=== PATIENT | male | born 1935 | race Caucasian/White ===

== ENCOUNTER 2019-07-27 09:45 | Emergency (ER) | payer OTHER, BC, MEDICARE ==
--- NOTE | 2019-07-27 10:26 | EDM.PDOC ---
ED HPI GENERAL MEDICAL PROBLEM - General Chief Complaint: Cardiovascular Problem Stated Complaint: LOW BP,FALL LAST NIGHT Time Seen by Provider: 07/27/19 10:16 - History of Present Illness INITIAL COMMENTS - FREE TEXT/NARRATIVE: 84-year-old male sent in by his primary care provider because he is having increasing dizziness and falls. Patient had his losartan held yesterday after he fell. It is uncertain to me whether or not he took his dose yesterday because the phone order to hold the losartan came in midday. The patient fell again on the he does say that he has been having increased dizziness the assisted living center where he stays did note that he has been mildly bradycardic with pulse rate in the 50s which she is done here and his blood pressure systolic is was 92. At this time his blood pressure is 120s here and he thinks the dizziness is getting a little bit better. Patient states he drinks 1 or 2 cups of coffee a day and probably not enough water. His appetite is otherwise normal. With the falls the patient denies hitting his head. With his falls he was walking with both of them. However at this time he denies being a little lightheaded just sitting there. He denies any abnormal pain at this point he does state at his age he always has a little bit of pain somewhere but nothing out of the ordinary. No headaches. The patient does not have a cough and no breathing difficulties and no chest pain. He states that for the most part he is in really good health. He has been having frequent loose stools 3-5 may be as high as 8 times a day. This is been an ongoing problem for him they have tried to do a colonoscopy but significant pain and spasm prevented exam. This was sometime back but he still has some discomfort in the area. - Related Data Allergies Allergy/AdvReac Type Severity Reaction Status Date / Time No Known Allergies Allergy Verified 07/27/19 09:53 Home Meds: Home Meds Acetaminophen 325 mg PO Q6H PRN 07/27/19 [History] Calazinc Body Shield 1 applic TOP ASDIRECTED PRN 07/27/19 [History] Carbamide Peroxide [Debrox 6.5% Otic Soln] 5 - 10 drop EARBOTH BID PRN 07/27/19 [History] Carboxymethylcell/Glycerin/Pf [Refresh Relieva Pf 0.5-0.9%] 1 drop EYEBOTH Q2H 07/27/19 [History] Carboxymethylcellulose Sodium [Refresh Tears 0.5%] 1 drop EYEBOTH ASDIRECTED PRN 07/27/19 [History] Cyanocobalamin (Vitamin B-12) [B-12] 1,000 mcg PO DAILY 07/27/19 [History] Donepezil HCl 10 mg PO BEDTIME 07/27/19 [History] Ibuprofen 200 mg PO Q4H PRN 07/27/19 [History] Inulin/Chromium Picolinate [Fiber Gummies] 2 piece gum PO DAILY 07/27/19 [ History] Levothyroxine [Synthroid] 50 mcg PO DAILY 07/27/19 [History] Loperamide [Imodium AD] 2 mg PO ASDIRECTED PRN 07/27/19 [History] Losartan [Cozaar] 25 mg PO DAILY 07/27/19 [History] Naproxen [Naprosyn] 500 mg PO BID PRN 07/27/19 [History] Sertraline [Zoloft] 50 mg PO DAILY 07/27/19 [History] Triamcinolone Acetonide 1 applic TOP BID PRN 07/27/19 [History] atorvaSTATin Calcium [Atorvastatin Calcium] 40 mg PO BEDTIME 07/27/19 [History] busPIRone [Buspar] 5 mg PO TID PRN 07/27/19 [History] prednisoLONE Acetate [Prednisolone Acetate] 1 drop EYEBOTH QID 07/27/19 [History ] Past Medical History HEENT History: Reports: Cataract, Impaired Vision Other HEENT History: wears reading eyeglasses. Cardiovascular History: Reports: CAD, High Cholesterol Other Cardiovascular History: atherosclerotic heart disease. Genitourinary History: Reports: Prostate Disorder Other Genitourinary History: Hx--prostate seed implantation. Musculoskeletal History: Reports: Osteoarthritis Neurological History: Reports: Other (See Below) Other Neuro History: dementia Psychiatric History: Reports: Dementia, PTSD Other Psychiatric History: major depressive disorder, single episode. Endocrine/Metabolic History: Reports: Hypothyroidism Immunologic History: Reports: Other (See Below) Other Immunologic History: prostate CA Oncologic (Cancer) History: Reports: Prostate - Past Surgical History HEENT Surgical History: Reports: Cataract Surgery Social & Family History - Tobacco Use Smoking Status *Q: Never Smoker Second Hand Smoke Exposure: No - Caffeine Use Caffeine Use: Reports: Coffee - Recreational Drug Use Recreational Drug Use: No ED ROS GENERAL - Review of Systems Review Of Systems: See Below Constitutional: Denies: Malaise, Weakness, Fatigue, Night Sweats HEENT: Reports: No Symptoms Respiratory: Reports: No Symptoms Cardiovascular: Reports: No Symptoms GI/Abdominal: Reports: No Symptoms Musculoskeletal: Reports: No Symptoms Skin: Reports: No Symptoms Neurological: Reports: Dizziness. Denies: No Symptoms Psychiatric: Reports: No Symptoms Hematologic/Lymphatic: Reports: No Symptoms ED EXAM, GENERAL - Physical Exam Exam: See Below Exam Limited By: No Limitations General Appearance: Alert, No Apparent Distress Eye Exam: Bilateral Eye: Normal Inspection Ears: Normal External Exam, Normal Canal, Hearing Grossly Normal, Normal TMs Nose: Normal Inspection, Normal Mucosa, No Blood Throat/Mouth: Normal Inspection, Normal Lips, Normal Gums, Normal Oropharynx, Normal Voice, No Airway Compromise. No: Normal Teeth (Has his own teeth on the bottom and they look well dentures on the uppers) Head: Atraumatic, Normocephalic Neck: Normal Inspection, Supple, Non-Tender, Full Range of Motion. No: Lymphadenopathy (L), Lymphadenopathy (R) Respiratory/Chest: No Respiratory Distress, Lungs Clear, Normal Breath Sounds Cardiovascular: Regular Rate, Rhythm, No Edema, No Murmur GI/Abdominal: Normal Bowel Sounds, Soft, Non-Tender Back Exam: Normal Inspection. No: CVA Tenderness (L), CVA Tenderness (R) Extremities: Normal Inspection, No Pedal Edema Neurological: Alert, Oriented, Normal Cognition Psychiatric: Normal Affect, Normal Mood Skin Exam: Warm, Dry, Intact Lymphatic: No Adenopathy Course - Vital Signs Last Recorded V/S: Last Vital Signs Temp 36.5 C 07/27/19 09:45 Pulse 56 L 07/27/19 09:45 Resp 20 07/27/19 09:45 BP 127/72 07/27/19 09:45 Pulse Ox 98 07/27/19 09:45 - Orders/Labs/Meds Orders: Active Orders 24 hr Category Date Time Status EKG 12 Lead [EKG Documentation Completion] [RC] STAT Care 07/27/19 13:13 Active STOOL CULTURE/SHIGA TOXIN [MREF] Stat Lab 07/27/19 13:03 Ordered Lactated Ringers [Ringers, Lactated] 1,000 ml Med 07/27/19 10:45 Active IV ASDIRECTED Medication Orders Lactated Ringer's (Ringers, Lactated) 1,000 mls @ 100 mls/hr IV ASDIRECTED DOROTHY Labs: Laboratory Tests 07/27/19 07/27/19 07/27/19 Range/Units 10:45 10:45 13:00 WBC 5.54 (4.23-9.07) K/mm3 RBC 4.26 L (4.63-6.08) M/mm3 Hgb 13.1 L (13.7-17.5) gm/dl Hct 38.4 L (40.1-51.0) % MCV 90.1 (79.0-92.2) fl MCH 30.8 (25.7-32.2) pg MCHC 34.1 (32.2-35.5) g/dl RDW Std Deviation 41.0 (35.1-43.9) fL Plt Count 184 (163-337) K/mm3 MPV 11.5 (9.4-12.3) fl Neut % (Auto) 59.3 (34.0-67.9) % Lymph % (Auto) 26.5 (21.8-53.1) % [place] % (Auto) 10.3 (5.3-12.2) % Eos % (Auto) 3.2 (0.8-7.0) Baso % (Auto) 0.5 (0.1-1.2) % Neut # (Auto) 3.28 (1.78-5.38) K/mm3 Lymph # (Auto) 1.47 (1.32-3.57) K/mm3 [place] # (Auto) 0.57 (0.30-0.82) K/mm3 Eos # (Auto) 0.18 (0.04-0.54) K/mm3 Baso # (Auto) 0.03 (0.01-0.08) K/mm3 Sodium 143 (136-145) mEq/L Potassium 3.5 (3.5-5.1) mEq/L Chloride 107 (98-107) mEq/L Carbon Dioxide 29 (21-32) mEq/L Anion Gap 10.5 (5-15) BUN 11 (7-18) mg/dL Creatinine 0.9 (0.7-1.3) mg/dL Est Cr Clr Drug Dosing 50.75 mL/min Estimated GFR (MDRD) > 60 (>60) mL/min BUN/Creatinine Ratio 12.2 L (14-18) Glucose 88 (83-115) mg/dL Calcium 8.4 L (8.5-10.1) mg/dL Magnesium 1.9 (1.8-2.4) mg/dl Total Bilirubin 0.6 (0.2-1.0) mg/dL AST 28 (15-37) U/L ALT 41 (16-63) U/L Alkaline Phosphatase 87 (46-116) U/L Total Protein 6.6 (6.4-8.2) g/dl Albumin 3.3 L (3.4-5.0) g/dl Globulin 3.3 gm/dL Albumin/Globulin Ratio 1.0 (1-2) Urine Color Yellow (Yellow) Urine Appearance Clear (Clear) Urine pH 7.0 (5.0-8.0) Ur Specific [place] 1.020 (1.005-1.030) Urine Protein Negative (Negative) Urine Glucose (UA) Negative (Negative) Urine Ketones Negative (Negative) Urine Occult Blood Negative (Negative) Urine Nitrite Negative (Negative) Urine Bilirubin Negative (Negative) Urine Urobilinogen 0.2 (0.2-1.0) Ur Leukocyte Esterase Negative (Negative) Meds: Medications Generic Name Dose Route Start Last Admin Trade Name Freq PRN Reason Stop Dose Admin Lactated Ringer's 1,000 mls @ 100 mls/hr 07/27/19 10:45 Ringers, Lactated IV ASDIRECTED DOROTHY Discontinued Medications Generic Name Dose Route Start Last Admin Trade Name Freq PRN Reason Stop Dose Admin Lactated Ringer's 500 mls @ 999 mls/hr 07/27/19 10:33 07/27/19 10:50 Ringers, Lactated IV 07/27/19 11:03 999 mls/hr .BOLUS ONE Administration - Re-Assessments/Exams Free Text/Narrative Re-Assessment/Exam: 07/27/19 11:26 Overall I am worried about this gentleman's condition we will check for protective chill causes including a head CT of discussed the situation with his primary provider anticipating stopping the Aricept as this can be contributing to his low blood pressure and his mild bradycardia it sounds like he is having some significant depression issues but we will not address that today. I did discuss the situation with the patient's son and he is awfully worried about him. The son has very realistic expectations about an 84-year-old developing these problems in the dementia but he is quite okay with a stop of the Aricept especially with the side effect profile and the limited benefits. I discussed situation with Clarisa Frazier, his primary provider, at the [facility], who would be willing to see the patient later this week or early next week for follow-up. 07/27/19 12:48 Still waiting on a urine he does not look dehydrated on his labs. 07/27/19 14:15 Have to do an outpatient order for C. difficile cultures for stool have been submitted. Patient is doing well at this time we will discharge have him hold his Aricept and stay off his losartan until followed up in the clinic in 1 week. Departure - Departure Time of Disposition: 14:17 Disposition: Home, Self-Care 01 Clinical Impression: Dizziness, Diarrhea Referrals: Clarisa Frazier, [employer] [Primary Care Provider] - Forms: ED Department Discharge Additional Instructions: Return to the emergency room with any questions or problems. Stop the Aricept. Continue holding the losartan until he follows up in the clinic. Follow-up with Clarisa Frazier at the [facility] on Thursday or Thursday of next week. Return a stool specimen for Clostridium difficile. I think this is unlikely but with his chronicity of the diarrhea it needs to be excluded Sepsis Event Note - Evaluation Sepsis Screening Result: No Definite Risk - Focused Exam Vital Signs: Vital Signs Temp Pulse Resp BP Pulse Ox 07/27/19 09:45 36.5 C 56 L 20 127/72 98 Date Exam was Performed: 07/27/19 Time Exam was Performed: 14:01 - My Orders Last 24 Hours: My Active Orders 07/27/19 10:45 Lactated Ringers [Ringers, Lactated] 1,000 ml IV ASDIRECTED 07/27/19 13:03 STOOL CULTURE/SHIGA TOXIN [MREF] Stat 07/27/19 13:13 EKG 12 Lead [EKG Documentation Completion] [RC] STAT - Assessment/Plan Last 24 Hours: My Active Orders 07/27/19 10:45 Lactated Ringers [Ringers, Lactated] 1,000 ml IV ASDIRECTED 07/27/19 13:03 STOOL CULTURE/SHIGA TOXIN [MREF] Stat 07/27/19 13:13 EKG 12 Lead [EKG Documentation Completion] [RC] STAT
[2019-07-27] MEDS ORDERED: Lactated Ringers 500 ML IV ONE (10:33)
[2019-07-27] MEDS ORDERED: Lactated Ringers 1,000 ML IV SCH (10:45)
--- NOTE | 2019-07-27 11:55 | CT ---
Head CT Technique: Multiple axial sections through the brain were obtained. Intravenous contrast was not utilized. [place]: Prior head CT study of 12/20/18. Findings: Ventricles along with basal cisterns and sulci over the convexities are moderately prominent. Mild diminished density is noted within portions of the periventricular and subcortical white matter which is compatible with small vessel ischemic demyelination change. No other abnormal parenchymal densities are seen. No evidence of intracranial hemorrhage. No midline shift or mass-effect is seen. Bone window settings were reviewed. No acute calvarial finding is seen. Visualized mastoid sinuses and visualized paranasal sinuses show nothing acute. Mild atherosclerotic calcification is seen within the carotid siphon. Impression: 1. Generalized atrophy and other senescent change. 2. No acute intracranial abnormality is appreciated. Diagnostic code #2 This report was dictated in MDT
== END 2019-07-27 14:45 | disposition home or self-care (01) ==
LOC: JD.ED 09:45
DX: R42 Dizziness and giddiness (principal); R19.7 Diarrhea, unspecified; I25.10 Atherosclerotic heart disease of native coronary artery without angina pectoris; E78.00 Pure hypercholesterolemia, unspecified; F03.90 Unspecified dementia, unspecified severity, without behavioral disturbance, psychotic disturbance, mood disturbance, and anxiety; F32.9 Major depressive disorder, single episode, unspecified; E03.9 Hypothyroidism, unspecified; Z79.899 Other long term (current) drug therapy
CPT/HCPCS: 36415; 70450; 80053; 81003; 83735; 85025; 87045; 87046; 87899; 93005; 96360; 96361; 99284; J7120; 99283

== ENCOUNTER 2020-04-11 11:32 | Emergency (ER) | payer BC, OTHER ==
--- NOTE | 2020-04-11 12:09 | EDM.PDOC ---
ED HPI GENERAL MEDICAL PROBLEM - General Chief Complaint: Cardiovascular Problem Stated Complaint: [facility] Time Seen by Provider: 04/11/20 11:40 Source of Information: Reports: Patient History Limitations: Reports: No Limitations - History of Present Illness INITIAL COMMENTS - FREE TEXT/NARRATIVE: 84-year-old male presents to the emergency department from [facility] with reports of having a syncopal episode. Staff reports that patient is normally up and ambulating independently however he came out of the bathroom this morning and had a witnessed syncopal episode. Patient's blood pressure initially after this episode was in the 70s systolic. Patient was then transported to the emergency department by EMS. Onset: Today, Sudden - Related Data Allergies Allergy/AdvReac Type Severity Reaction Status Date / Time No Known Allergies Allergy Verified 07/27/19 09:53 Home Meds: Home Meds Acetaminophen 325 mg PO Q6H PRN 07/27/19 [History] Calazinc Body Shield 1 applic TOP ASDIRECTED PRN 07/27/19 [History] Carbamide Peroxide [Debrox 6.5% Otic Soln] 5 - 10 drop EARBOTH BID PRN 07/27/19 [History] Carboxymethylcell/Glycerin/Pf [Refresh Relieva Pf 0.5-0.9%] 1 drop EYEBOTH ASDIRECTED PRN 07/27/19 [History] Carboxymethylcellulose Sodium [Refresh Tears 0.5%] 1 drop EYEBOTH ASDIRECTED PRN 07/27/19 [History] Cyanocobalamin (Vitamin B-12) [B-12] 1,000 mcg PO DAILY 07/27/19 [History] Donepezil HCl 5 mg PO BEDTIME 07/27/19 [History] Ibuprofen 200 mg PO Q4H PRN 07/27/19 [History] Levothyroxine [Synthroid] 75 mcg PO DAILY 07/27/19 [History] Loperamide [Imodium AD] 2 mg PO ASDIRECTED PRN 07/27/19 [History] Naproxen [Naprosyn] 500 mg PO BID PRN 07/27/19 [History] Sertraline [Zoloft] 100 mg PO DAILY 07/27/19 [History] Triamcinolone Acetonide 1 applic TOP BID PRN 07/27/19 [History] atorvaSTATin Calcium [Atorvastatin Calcium] 40 mg PO BEDTIME 07/27/19 [History] busPIRone [Buspar] 15 mg PO BID PRN 07/27/19 [History] Divalproex Sodium [Depakote] 125 mg PO DAILY 04/11/20 [History] Psyllium Husk [Fiber] 1 dose PO DAILY 04/11/20 [History] Past Medical History HEENT History: Reports: Cataract, Impaired Vision Other HEENT History: wears reading eyeglasses. Cardiovascular History: Reports: CAD, High Cholesterol Other Cardiovascular History: atherosclerotic heart disease. Genitourinary History: Reports: Prostate Disorder Other Genitourinary History: Hx--prostate seed implantation. Musculoskeletal History: Reports: Osteoarthritis Neurological History: Reports: Other (See Below) Other Neuro History: dementia Psychiatric History: Reports: Anxiety, Dementia, PTSD Other Psychiatric History: major depressive disorder, single episode. Endocrine/Metabolic History: Reports: Hypothyroidism Immunologic History: Reports: Other (See Below) Other Immunologic History: prostate CA Oncologic (Cancer) History: Reports: Prostate - Past Surgical History HEENT Surgical History: Reports: Cataract Surgery Social & Family History - Tobacco Use Tobacco Use Status *Q: Unknown Ever Used Tobacco - Caffeine Use Caffeine Use: Reports: None - Recreational Drug Use Recreational Drug Use: No ED ROS GENERAL - Review of Systems Review Of Systems: See Below Constitutional: Reports: No Symptoms, Other (Your vital signs reveal a temp of 98.4, pulse of 60, respiratory rate of 12, blood pressure 89/55, pulse ox 100% on room air) HEENT: Reports: Hearing Loss (hearing aid in right ear) Respiratory: Reports: No Symptoms Cardiovascular: Reports: Blood Pressure Problem, Syncope Endocrine: Reports: No Symptoms GI/Abdominal: Reports: No Symptoms : Reports: No Symptoms Musculoskeletal: Reports: No Symptoms Skin: Reports: No Symptoms Neurological: Reports: No Symptoms Psychiatric: Reports: Confusion (Patient is a resident of [facility] and has significant dementia) Hematologic/Lymphatic: Reports: No Symptoms Immunologic: Reports: No Symptoms ED EXAM, GENERAL - Physical Exam Exam: See Below Exam Limited By: No Limitations General Appearance: Alert, WD/WN, No Apparent Distress Eye Exam: Bilateral Eye: PERRL Ears: Hearing Loss (very hard of hearing, hearing aid in right ear) Nose: Normal Inspection Throat/Mouth: Normal Voice, No Airway Compromise Head: Atraumatic, Normocephalic Neck: Normal Inspection, Supple, Non-Tender, Full Range of Motion Respiratory/Chest: No Respiratory Distress, Lungs Clear, Normal Breath Sounds, No Accessory Muscle Use, Chest Non-Tender Cardiovascular: Normal Peripheral Pulses, Regular Rate, Rhythm, No Edema, No Murmur, Bradycardia Peripheral Pulses: 2+: Radial (L), Radial (R) GI/Abdominal: Normal Bowel Sounds, Soft, Non-Tender, No Distention (Male) Exam: Deferred Rectal (Males) Exam: Deferred Back Exam: Normal Inspection, Full Range of Motion Extremities: Normal Inspection, Normal Range of Motion, Non-Tender, No Pedal Edema, Normal Capillary Refill Neurological: Alert, Normal Cognition. No: Oriented (history of dementia) Psychiatric: Normal Affect, Normal Mood Skin Exam: Warm, Dry, Intact, No Rash, Pallor Lymphatic: No Adenopathy #1 Interpretation EKG Date: 04/11/20 Time: 11:40 Rhythm: NSR Rate (Beats/Min): 58 [place]: Normal P-Wave: Present QRS: Normal ST-T: Normal QT: Normal Comparison: NA - No Prior EKG EKG Interpretation Comments: EKG interpretation per Dr. Diaz: Sinus rhythm at 58 bpm, early R wave transition/consider right ventricular hypertrophy/septal hypertrophy, diffuse early R wave transition, Q waves in II,III, AVF-consider old inferior wall TX. Course - Vital Signs Text/Narrative:: 84-year-old male brought in by EMS to the emergency department from [facility] assisted [facility]. Patient had a witnessed syncopal episode after walking out of the bathroom this morning. Patient is normally up independently and has had no issues with nausea, vomiting, dehydration recently. Has not had any fever or chills. Patient does have significant dementia so it is difficult to get a thorough history on himself. Not able to elicit any painful response on palpation of the abdomen. In assessment is otherwise essentially unremarkable. I have ordered a CBC, CMP, magnesium, C-reactive protein, troponin, EKG and a chest x-ray. I have also ordered for nursing staff to perform orthostatic vital signs on the patient. Last Recorded V/S: Last Vital Signs Temp 98.4 F 04/11/20 11:36 Pulse 60 04/11/20 11:36 Resp 12 04/11/20 11:36 BP 89/55 L 04/11/20 11:36 Pulse Ox 100 04/11/20 11:36 Orthostatic Blood Pressure [ 104/58 Standing] Orthostatic Blood Pressure [ 109/58 Sitting] Orthostatic Blood Pressure [ 103/52 Supine] - Orders/Labs/Meds Orders: Active Orders 24 hr Category Date Time Status Orthostatic Vital Signs [RC] ASDIRECTED Care 04/11/20 11:43 Active Labs: Laboratory Tests 04/11/20 04/11/20 Range/Units 11:56 11:56 WBC 4.70 (4.23-9.07) K/mm3 RBC 3.96 L (4.63-6.08) M/mm3 Hgb 12.1 L (13.7-17.5) gm/dl Hct 36.3 L (40.1-51.0) % MCV 91.7 (79.0-92.2) fl MCH 30.6 (25.7-32.2) pg MCHC 33.3 (32.2-35.5) g/dl RDW Std Deviation 41.5 (35.1-43.9) fL Plt Count 146 L (163-337) K/mm3 MPV 11.8 (9.4-12.3) fl Neut % (Auto) 61.4 (34.0-67.9) % Lymph % (Auto) 20.0 L (21.8-53.1) % [place] % (Auto) 15.5 H (5.3-12.2) % Eos % (Auto) 2.1 (0.8-7.0) Baso % (Auto) 0.6 (0.1-1.2) % Neut # (Auto) 2.88 (1.78-5.38) K/mm3 Lymph # (Auto) 0.94 L (1.32-3.57) K/mm3 [place] # (Auto) 0.73 (0.30-0.82) K/mm3 Eos # (Auto) 0.10 (0.04-0.54) K/mm3 Baso # (Auto) 0.03 (0.01-0.08) K/mm3 Manual Slide Review Normal smear Sodium 141 (136-145) mEq/L Potassium 4.4 (3.5-5.1) mEq/L Chloride 107 (98-107) mEq/L Carbon Dioxide 28 (21-32) mEq/L Anion Gap 10.4 (5-15) BUN 11 (7-18) mg/dL Creatinine 1.2 (0.7-1.3) mg/dL Est Cr Clr Drug Dosing 40.50 mL/min Estimated GFR (MDRD) 58 (>60) mL/min BUN/Creatinine Ratio 9.2 L (14-18) Glucose 169 H (83-115) mg/dL Calcium 8.7 (8.5-10.1) mg/dL Magnesium 1.9 (1.8-2.4) mg/dl Total Bilirubin 0.5 (0.2-1.0) mg/dL AST 20 (15-37) U/L ALT 24 (16-63) U/L Alkaline Phosphatase 72 (46-116) U/L Troponin I < 0.017 (0.00-0.056) ng/mL C-Reactive Protein 2.1 H* (<1.0) mg/dL Total Protein 6.5 (6.4-8.2) g/dl Albumin 3.0 L (3.4-5.0) g/dl Globulin 3.5 gm/dL Albumin/Globulin Ratio 0.9 L (1-2) - Radiology Interpretation Free Text/Narrative:: Portable view of the chest radiology interpretation: Nothing acute is appreciated on portable chest x-ray. - Re-Assessments/Exams Free Text/Narrative Re-Assessment/Exam: 04/11/20 12:49 Performed a rectal exam on this patient and he is occult negative. 04/11/20 12:52 CBC reveals a hemoglobin of 12.1, hematocrit 36.3, platelet count is 146, chemistry reveals a glucose of 169, troponin less than 0.017, C-reactive protein 2.1 ( this is likely due to the stress of the syncopal episode) labs are otherwise unremarkable. 04/11/20 12:55 Pt was not orthstatic with his vital signs. Pt has not been hypotensive since being in the ER. Pt likely had a syncopal episode due to orthostasis. 04/11/20 13:01 Departure - Departure Time of Disposition: 12:58 Disposition: DC/Tfer to SNF 03 Reason for Transfer *Q: Other Condition: Fair Clinical Impression: Syncope due to orthostatic hypotension Instructions: Orthostatic Hypotension Referrals: Zully Le MD [Primary Care Provider] - Forms: ED Department Discharge Additional Instructions: Rudolph was seen in the emergency department with the episode of fainting. A complete work-up was performed in the emergency department including an EKG, chest x-ray and lab work. Work-up was completely unremarkable for cause of the syncope. Patient will be discharged back to [facility] to follow-up with his primary care physician. Sepsis Event Note (ED) - Evaluation Sepsis Screening Result: No Definite Risk - Focused Exam Vital Signs: Vital Signs Temp Pulse Resp BP Pulse Ox 04/11/20 11:36 98.4 F 60 12 89/55 L 100 - My Orders Last 24 Hours: My Active Orders 04/11/20 11:43 Orthostatic Vital Signs [RC] ASDIRECTED - Assessment/Plan Last 24 Hours: My Active Orders 04/11/20 11:43 Orthostatic Vital Signs [RC] ASDIRECTED
--- NOTE | 2020-04-11 12:40 | CR ---
Chest: Portable view of the chest was obtained. Comparison: No prior chest imaging is available. Heart size and mediastinum are normal. Lungs are clear with no acute parenchymal change. Bony structures showed nothing acute. Impression: 1. Nothing acute is appreciated on portable chest x-ray. Diagnostic code #1
== END 2020-04-11 13:44 ==
LOC: JD.ED 11:32
DX: I95.1 Orthostatic hypotension (principal); I25.10 Atherosclerotic heart disease of native coronary artery without angina pectoris; E78.00 Pure hypercholesterolemia, unspecified; F41.9 Anxiety disorder, unspecified; F03.90 Unspecified dementia, unspecified severity, without behavioral disturbance, psychotic disturbance, mood disturbance, and anxiety; F32.9 Major depressive disorder, single episode, unspecified; E03.9 Hypothyroidism, unspecified; Z79.899 Other long term (current) drug therapy
CPT/HCPCS: 36415; 71045; 71045-26; 80053; 83735; 84484; 85025; 86140; 93010; 99283; 99285-25

== ENCOUNTER 2020-08-23 15:19 | Emergency (ER) | payer BC, OTHER ==
--- NOTE | 2020-08-23 16:28 | EDM.PDOC ---
ED HPI GENERAL MEDICAL PROBLEM - General Chief Complaint: Back Pain or Injury Stated Complaint: LOW BACK PAIN AND HIP PAIN Time Seen by Provider: 08/23/20 16:10 Source of Information: Reports: Patient, Family History Limitations: Reports: No Limitations - History of Present Illness INITIAL COMMENTS - FREE TEXT/NARRATIVE: 85-year-old male presents the emergency department complaints of pain in his right hip/buttock area that radiates down the back of his thigh. The patient is a resident of [facility] so it is very difficult to obtain a thorough history from him. Per the patient's son he has been complaining of pain to the right buttock area with radiation down the back of his right thigh for the past 3 days. However today it has become so significant that he has not gotten out of bed so they called the son to transport him to the emergency department. Patient states it is worse when he is sitting upright in a chair or ambulating. States he is not having discomfort when he is laying in bed. Patient otherwise has been healthy. No fever, chills, nausea, vomiting, diarrhea. Denies any problems with urination or bowels. Right Buttock Pain Score (Numeric/FACES): 6 - Related Data Allergies Allergy/AdvReac Type Severity Reaction Status Date / Time No Known Allergies Allergy Verified 07/27/19 09:53 Home Meds: Home Meds Acetaminophen 325 mg PO Q6H PRN 07/27/19 [History] Calazinc Body Shield 1 applic TOP ASDIRECTED PRN 07/27/19 [History] Carbamide Peroxide [Debrox 6.5% Otic Soln] 5 - 10 drop EARBOTH BID PRN 07/27/19 [History] Carboxymethylcell/Glycerin/Pf [Refresh Relieva Pf 0.5-0.9%] 1 drop EYEBOTH ASDIRECTED PRN 07/27/19 [History] Carboxymethylcellulose Sodium [Refresh Tears 0.5%] 1 drop EYEBOTH ASDIRECTED PRN 07/27/19 [History] Cyanocobalamin (Vitamin B-12) [B-12] 1,000 mcg PO DAILY 07/27/19 [History] Donepezil HCl 5 mg PO BEDTIME 07/27/19 [History] Ibuprofen 200 mg PO Q4H PRN 07/27/19 [History] Levothyroxine [Synthroid] 75 mcg PO DAILY 07/27/19 [History] Loperamide [Imodium AD] 2 mg PO ASDIRECTED PRN 07/27/19 [History] Naproxen [Naprosyn] 500 mg PO BID PRN 07/27/19 [History] Sertraline [Zoloft] 100 mg PO DAILY 07/27/19 [History] Triamcinolone Acetonide 1 applic TOP BID PRN 07/27/19 [History] atorvaSTATin Calcium [Atorvastatin Calcium] 40 mg PO BEDTIME 07/27/19 [History] busPIRone [Buspar] 15 mg PO BID PRN 07/27/19 [History] Divalproex Sodium [Depakote] 125 mg PO DAILY 04/11/20 [History] Psyllium Husk [Fiber] 1 dose PO DAILY 04/11/20 [History] predniSONE [Prednisone] 10 mg PO DAILY #5 tablet 08/23/20 [Rx] Past Medical History HEENT History: Reports: Cataract, Impaired Vision Other HEENT History: wears reading eyeglasses. Cardiovascular History: Reports: CAD, High Cholesterol Other Cardiovascular History: atherosclerotic heart disease. Genitourinary History: Reports: Prostate Disorder Other Genitourinary History: Hx--prostate seed implantation. Musculoskeletal History: Reports: Osteoarthritis Neurological History: Reports: Other (See Below) Other Neuro History: dementia Psychiatric History: Reports: Anxiety, Dementia, PTSD Other Psychiatric History: major depressive disorder, single episode. Endocrine/Metabolic History: Reports: Hypothyroidism Immunologic History: Reports: Other (See Below) Other Immunologic History: prostate CA Oncologic (Cancer) History: Reports: Prostate - Past Surgical History HEENT Surgical History: Reports: Cataract Surgery Social & Family History - Caffeine Use Caffeine Use: Reports: None ED ROS GENERAL - Review of Systems Review Of Systems: Comprehensive ROS is negative, except as noted in HPI. ED EXAM,LOWER BACK PAIN/INJURY - Physical Exam Exam: See Below Exam Limited By: No Limitations General Appearance: Alert, WD/WN, No Apparent Distress Ears: Normal External Exam, Hearing Loss (Patient wears bilateral hearing aids) Nose: Normal Inspection Throat/Mouth: Normal Inspection, Normal Lips, Normal Voice, No Airway Compromise Head: Atraumatic Neck: Normal Inspection, Supple Respiratory/Chest: No Respiratory Distress, No Accessory Muscle Use Cardiovascular: Normal Peripheral Pulses, Regular Rate, Rhythm GI/Abdominal: No Distention (Male) Exam: Deferred Rectal (Males) Exam: Deferred Back Exam: Normal Inspection Extremities: Normal Inspection, Normal Range of Motion, No Pedal Edema, Normal Capillary Refill. No: Non-Tender (Tenderness noted to right buttock area near the SI joint) Neurological: Alert, Normal Mood/Affect. No: Oriented x 3 (Patient has a history of dementia and resides in an Alzheimer's house) Psychiatric: Normal Affect, Normal Mood Skin Exam: Warm, Dry, Intact, Normal Color, No Rash Lymphatic: No Adenopathy Course - Vital Signs Text/Narrative:: Patient presents with complaints of right buttock pain radiating down the back of his thigh over the course of the past 3 days. I am able to palpate the area of pain in the right buttock area near the SI joint as the source of the d iscomfort. I have ordered an x-ray of the right hip. Last Recorded V/S: Last Vital Signs Temp 98.5 F 08/23/20 16:20 Pulse 63 08/23/20 16:20 Resp 13 08/23/20 16:20 BP 161/88 H 08/23/20 16:20 Pulse Ox 100 08/23/20 16:20 - Re-Assessments/Exams Free Text/Narrative Re-Assessment/Exam: 08/23/20 17:07 X-ray of the right hip radiologist impression: Upper portions of the iliac bones were not included on the exam. Vascular calcification is noted. Phleboliths are seen within the pelvis. Bony structures are osteopenic. Joint spaces within both hips are fairly well-preserved. Slight calcifications are noted above age greater trochanter of the right hip. No acute fracture or other bony abnormality is appreciated Patient will be given prednisone 10 mg p.o. while in the emergency department and then he will be sent with a prescription for prednisone 10 mg daily for another 5 days. Also recommend that he take Aleve twice a day for the discomfort. Departure - Departure Time of Disposition: 17:01 Disposition: Home, Self-Care 01 Condition: Good Clinical Impression: Sciatica Qualifiers: Laterality: right Qualified Code(s): M54.31 - Sciatica, right side - Discharge Information Prescriptions: predniSONE [Prednisone] 10 mg PO DAILY #5 tablet Referrals: Clarisa Frazier [employer]AMINER [Primary Care Provider] - Forms: ED Department Discharge Additional Instructions: Rudolph was seen in the emergency department today with complaints of pain to the right hip radiating down the back of his thigh. X-rays were completed and these were unremarkable. Upon assessment I was able to palpate the location of the discomfort and this is indeed likely due to sciatica. Treatment for this is prednisone 10 mg daily for 6 days as well as nonsteroidal anti-inflammatories. He can take naproxen 1 tab every 12 hours for the next couple of days. Be sure he takes all of these medications with food. It will likely take a couple of days before you notice a decrease in the pain however it should resolve. R ecommend he follow-up with his primary provider in a week to 10 days if he is not feeling better. Sepsis Event Note (ED) - Focused Exam Vital Signs: Vital Signs Temp Pulse Resp BP Pulse Ox 08/23/20 16:20 98.5 F 63 13 161/88 H 100
--- NOTE | 2020-08-23 17:00 | CR ---
Pelvis and right hip: AP view of the pelvis was obtained. Additional AP and frog-leg lateral views were obtained of the right hip. Comparison: No previous pelvis or hip study is available. Upper portions of the iliac bones were not included on the exam. Vascular calcification is noted. Phleboliths are seen within the pelvis. Bony structures are osteopenic. Joint spaces within both hips are fairly well preserved. Slight calcifications are noted above the greater trochanter of the right hip as well as lesser calcification above the trochanter of the left hip which are believed to be incidental. No acute fracture or other bony abnormality is appreciated. Impression: 1. Findings as noted above. 2. Nothing acute is appreciated. Diagnostic code #2
[2020-08-23] MEDS ORDERED: predniSONE 10 MG Tab PO ONE (17:06)
== END 2020-08-23 17:50 | disposition home or self-care (01) ==
LOC: JD.ED 15:19
DX: M54.41 Lumbago with sciatica, right side (principal); I25.10 Atherosclerotic heart disease of native coronary artery without angina pectoris; E78.00 Pure hypercholesterolemia, unspecified; Z79.899 Other long term (current) drug therapy
CPT/HCPCS: 73502; 99283; J7512

== ENCOUNTER 2020-12-24 20:58 | Emergency (ER) | payer BC, MEDICARE, OTHER ==
--- NOTE | 2020-12-24 21:42 | EDM.PDOC ---
ED HPI GENERAL MEDICAL PROBLEM - General Chief Complaint: Head Injury Stated Complaint: LAC ON EYEBROW Time Seen by Provider: 12/24/20 21:41 - History of Present Illness INITIAL COMMENTS - FREE TEXT/NARRATIVE: 85-year-[facility] the hallway. He injured his right elbow and his right head. 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 He muscle lost his footing he is ambulatory at this time does not complain of too much pain. His right forearm from the elbow down has a significant swollen component however he seems to have maintained reasonable function from it. Apparently there was no loss of consciousness he has been acting otherwise normal. Face/Facial Pain Score (Numeric/FACES): 6 - Related Data Allergies Allergy/AdvReac Type Severity Reaction Status Date / Time No Known Allergies Allergy Verified 07/27/19 09:53 Home Meds: Home Meds Acetaminophen 325 mg PO Q6H PRN 07/27/19 [History] Calazinc Body Shield 1 applic TOP ASDIRECTED PRN 07/27/19 [History] Carbamide Peroxide [Debrox 6.5% Otic Soln] 5 - 10 drop EARBOTH BID PRN 07/27/19 [History] Carboxymethylcell/Glycerin/Pf [Refresh Relieva Pf 0.5-0.9%] 1 drop EYEBOTH ASDIRECTED PRN 07/27/19 [History] Carboxymethylcellulose Sodium [Refresh Tears 0.5%] 1 drop EYEBOTH ASDIRECTED PRN 07/27/19 [History] Cyanocobalamin (Vitamin B-12) [B-12] 1,000 mcg PO DAILY 07/27/19 [History] Donepezil HCl 5 mg PO BEDTIME 07/27/19 [History] Ibuprofen 200 mg PO Q4H PRN 07/27/19 [History] Levothyroxine [Synthroid] 75 mcg PO DAILY 07/27/19 [History] Loperamide [Imodium AD] 2 mg PO ASDIRECTED PRN 07/27/19 [History] Naproxen [Naprosyn] 500 mg PO BID PRN 07/27/19 [History] Sertraline [Zoloft] 100 mg PO DAILY 07/27/19 [History] Triamcinolone Acetonide 1 applic TOP BID PRN 07/27/19 [History] atorvaSTATin Calcium [Atorvastatin Calcium] 40 mg PO BEDTIME 07/27/19 [History] busPIRone [Buspar] 15 mg PO BID PRN 07/27/19 [History] Divalproex Sodium [Depakote] 125 mg PO DAILY 04/11/20 [History] Psyllium Husk [Fiber] 1 dose PO DAILY 04/11/20 [History] predniSONE [Prednisone] 10 mg PO DAILY #5 tablet 08/23/20 [Rx] Past Medical History HEENT History: Reports: Cataract, Impaired Vision Other HEENT History: wears reading eyeglasses. Cardiovascular History: Reports: CAD, High Cholesterol Other Cardiovascular History: atherosclerotic heart disease. Genitourinary History: Reports: Prostate Disorder Other Genitourinary History: Hx--prostate seed implantation. Musculoskeletal History: Reports: Osteoarthritis Neurological History: Reports: Other (See Below) Other Neuro History: dementia Psychiatric History: Reports: Anxiety, Dementia, PTSD Other Psychiatric History: major depressive disorder, single episode. Endocrine/Metabolic History: Reports: Hypothyroidism Immunologic History: Reports: Other (See Below) Other Immunologic History: prostate CA Oncologic (Cancer) History: Reports: Prostate - Past Surgical History HEENT Surgical History: Reports: Cataract Surgery Social & Family History - Caffeine Use Caffeine Use: Reports: None ED ROS GENERAL - Review of Systems Review Of Systems: See Below Constitutional: Reports: No Symptoms HEENT: Reports: No Symptoms Respiratory: Reports: No Symptoms Cardiovascular: Reports: No Symptoms Endocrine: Reports: No Symptoms GI/Abdominal: Reports: No Symptoms : Reports: No Symptoms Musculoskeletal: Reports: No Symptoms Skin: Reports: No Symptoms Neurological: Reports: No Symptoms (Baseline deficits) ED EXAM, GENERAL - Physical Exam Exam: See Below Exam Limited By: No Limitations General Appearance: Alert, No Apparent Distress Eye Exam: Bilateral Eye: EOMI, Normal Inspection, PERRL Ears: Normal External Exam, Normal Canal, Hearing Grossly Normal, Normal TMs Nose: Normal Inspection, Normal Mucosa, No Blood Throat/Mouth: Normal Inspection, Normal Lips, Normal Teeth, Normal Gums, Normal Oropharynx, Normal Voice, No Airway Compromise Head: Atraumatic, Normocephalic, Facial Swelling (Swelling in the laceration over his right eyebrow) Neck: Normal Inspection, Supple, Non-Tender. No: Lymphadenopathy (L), Lymphadenopathy (R) Respiratory/Chest: No Respiratory Distress, No Accessory Muscle Use Cardiovascular: Normal Peripheral Pulses, Regular Rate, Rhythm, No Edema GI/Abdominal: Normal Bowel Sounds, Soft, Non-Tender Back Exam: Normal Inspection. No: CVA Tenderness (L), CVA Tenderness (R), Vertebral Tenderness Extremities: Normal Inspection, No Pedal Edema, Other (Right arm swelling but he seems to have preserved function around the elbow) Neurological: Other (Patient is able to answer simple commands and questions) Lymphatic: No Adenopathy ED GENERAL MEDICAL PROCEDURES - Laceration/Wound Repair Right Face Lac/wound length in cm: 2 Appearance: Subcutaneous Anesthetic Type: Local Local Anesthesia - Lidocaine (Xylocaine): 1% Plain Local Anesthetic Volume: 2cc Skin Prep: Saline Exploration/Debridement/Repair: Wound Explored, In a Bloodless Field Suture Size: 4-0 # of Sutures: 4 Suture Type: Nylon Tetanus Status Addressed: Yes (Tetanus is unknown we will update) Complications: No Course - Vital Signs Last Recorded V/S: Last Vital Signs Temp 36.4 C 12/24/20 21:42 Pulse 62 12/24/20 21:42 Resp 18 12/24/20 21:42 BP 202/101 H 12/24/20 21:42 Pulse Ox 100 12/24/20 21:42 - Orders/Labs/Meds Orders: Active Orders 24 hr Category Date Time Status Elbow Min 3V Rt [CR] Stat Exams 12/24/20 21:48 Taken Forearm 2V Rt [CR] Stat Exams 12/24/20 21:48 Taken Head wo Cont [CT] Stat Exams 12/24/20 21:48 Taken Hip Min 1V Rt [CR] Stat Exams 12/24/20 23:15 Taken Meds: Medications Discontinued Medications Generic Name Dose Route Start Last Admin Trade Name Freq PRN Reason Stop Dose Admin Lidocaine HCl 10 ml 12/24/20 21:54 12/24/20 22:29 Lidocaine 1% 10 Ml Mdv INJECT 12/24/20 21:55 10 ml ONETIME ONE Administration - Re-Assessments/Exams Free Text/Narrative Re-Assessment/Exam: 12/24/20 22:[address] report the right hip skin get x-rayed apparently the the nurse from [facility] thought the patient needed a hip x-ray. He told me nothing to indicate this. 12/25/20 00:11 X-ray of the hip is unrevealing x-ray of the arm and elbow is unrevealing. Head CT is nondiagnostic he is got some age-related changes but no acute intracranial processes. The patient had primary repair of the laceration above his right eyebrow repaired without difficulty 12/25/20 00:14 Patient tolerated primary repair of the bleeding laceration above his right eye. Tetanus status is unknown this will be updated. Patient will be discharged back to his half-way facility. Departure - Departure Time of Disposition: 00:14 Disposition: DC/Tfer to SNF 03 Clinical Impression: Head injury, Facial laceration, Contusion, hip, Injury of right elbow, Right forearm injury, Traumatic hematoma of right forearm - Discharge Information Referrals: John Zambrano MD [Primary Care Provider] - Forms: ED Department Discharge Additional Instructions: Return to the emergency room with any questions problems or worsening symptoms. Sutures out in 7 to 9 days. Tylenol as needed for discomfort. Follow-up with primary healthcare provider by the end of this week for recheck. Sepsis Event Note (ED) - Focused Exam Vital Signs: Vital Signs Temp Pulse Resp BP Pulse Ox 12/24/20 21:42 36.4 C 62 18 202/101 H 100 - My Orders Last 24 Hours: My Active Orders 12/24/20 21:48 Elbow Min 3V Rt [CR] Stat Forearm 2V Rt [CR] Stat Head wo Cont [CT] Stat 12/24/20 23:15 Hip Min 1V Rt [CR] Stat - Assessment/Plan Last 24 Hours: My Active Orders 12/24/20 21:48 Elbow Min 3V Rt [CR] Stat Forearm 2V Rt [CR] Stat Head wo Cont [CT] Stat 12/24/20 23:15 Hip Min 1V Rt [CR] Stat
[2020-12-24] MEDS ORDERED: Lidocaine 1% 10 ML MDV INJECT ONE (21:54)
[2020-12-25] MEDS ORDERED: Diphtheria,Pertussis(Acell),Tetanus Vaccine 0.5 ML Syringe IM ONE (00:13)
--- NOTE | 2020-12-25 07:52 | CR ---
Right forearm: 2 views of the right forearm were obtained. Comparison: No prior right forearm study is available. Diffuse soft tissue swelling is seen within the forearm. Slight chondrocalcinosis is noted within the triangular fibrocartilage. Vascular calcification is seen. No acute fracture or other bony abnormality is appreciated. Impression: 1. Diffuse soft tissue swelling. 2. Other chronic findings as noted above. 3. No acute bony abnormality is appreciated. Diagnostic code #2
--- NOTE | 2020-12-25 07:52 | CR ---
Right hip: Single AP view of the right hip was obtained. Comparison: Prior pelvis and right hip exam of 08/23/20. Joint space within the right hip is maintained. Slight degenerative change is noted within the sacroiliac joint. Vascular calcification is noted. No acute fracture or other abnormality is appreciated. Impression: 1. Findings believed to be chronic as noted above. 2. Nothing acute is seen on AP right hip exam. Diagnostic code #2
--- NOTE | 2020-12-25 07:52 | CR ---
Right elbow: 4 views of the right elbow were obtained. Comparison: No prior elbow study is available. Diffuse soft tissue swelling is identified within the proximal forearm. Minimal calcification is seen within the distal triceps tendon at the attachment to the olecranon process. No joint effusion is seen within the right elbow. No acute fracture, dislocation or other bony abnormality is appreciated. Impression: 1. Diffuse soft tissue swelling. Minimal triceps calcification. 2. No acute bony abnormality is appreciated. Diagnostic code #2
--- NOTE | 2020-12-25 07:53 | CT ---
Head CT Technique: Multiple axial sections through the brain were obtained. Intravenous contrast was not utilized. Reconstructed coronal and sagittal images were obtained. Comparison: Prior head CT study of 07/27/19. Findings: Ventricles along with basal cisterns and sulci of the convexities are moderately prominent. Mild diminished density is noted within the periventricular and subcortical white matter compatible with small vessel ischemic demyelination change which is stable from prior CT exam. No other abnormal parenchymal densities are seen. No evidence of intracranial hemorrhage is seen. No midline shift or mass-effect is seen. Soft tissue swelling is seen within the right frontal scalp and around the right periorbital region. Small amount of soft tissue air is seen which is compatible with soft tissue injury. Bone window settings were reviewed which show no acute calvarial abnormality. Visualized paranasal sinuses and visualized mastoid sinuses show nothing acute. Impression: 1. Right sided scalp swelling with right-sided periorbital swelling. Soft tissue injury is seen as well as soft tissue air being seen within this area. 2. Senescent change as described above. 3. No acute intracranial abnormality is identified. Diagnostic code #2 I agree with preliminary report from [facility], finalized on 12/25/20, 12:35 AM CDT, code 1
== END 2020-12-25 00:35 ==
LOC: JD.ED 20:58
DX: S01.81XA Laceration without foreign body of other part of head, initial encounter (principal); S50.11XA Contusion of right forearm, initial encounter; S70.01XA Contusion of right hip, initial encounter; S59.901A Unspecified injury of right elbow, initial encounter; I25.10 Atherosclerotic heart disease of native coronary artery without angina pectoris; E78.00 Pure hypercholesterolemia, unspecified; M19.90 Unspecified osteoarthritis, unspecified site; E03.9 Hypothyroidism, unspecified; Z23 Encounter for immunization; Z79.899 Other long term (current) drug therapy; W18.30XA Fall on same level, unspecified, initial encounter; Y93.02 Activity, running; Y92.89 Other specified places as the place of occurrence of the external cause
CPT/HCPCS: 12011; 70450; 70450-26; 73080-26-RT; 73080-RT; 73090-26-RT; 73090-RT; 73501-26-RT; 73501-RT; 90471; 90715; 99283; 99284-25

== ENCOUNTER 2020-12-29 01:52 | Emergency (ER) | payer BC, MEDICARE, OTHER ==
--- NOTE | 2020-12-29 02:53 | EDM.PDOC ---
ED HPI GENERAL MEDICAL PROBLEM <David Cornell Rocael - Last Filed: 12/29/20 19:44> <Norbert Penn - Last Filed: 12/30/20 00:27> - General Source of Information: Reports: Patient, Family, Other ([facility]) History Limitations: Reports: Altered Mental Status - History of Present Illness Onset: Gradual Duration: Day(s): Improves with: Reports: None Worsens with: Reports: None Associated Symptoms: Reports: No Other Symptoms Headache Pain Score (Numeric/FACES): 6 <Bennett Frazier - Last Filed: 12/30/20 09:17> - General Chief Complaint: Head Injury Stated Complaint: FALL/HEAD LAC Time Seen by Provider: 12/29/20 02:07 - History of Present Illness INITIAL COMMENTS - FREE TEXT/NARRATIVE: The patient presents with his son from [facility] for a fall. The patient had an unwitnessed fall today. He has some bleeding from the back of his head. He had no LOC as far as anyone knows. He has a history of dementia. He fell 4 days ago and his his head and hurt his left and right arm. He was seen here and x-rays and a CT were done. He was running around the [place] when he fell 4 days ago. He has become weaker since then. His doctor made some changes to his medications. He has become more weak and he fell today. He has no fever, chills, cough, chest pain, shortness of breath, abdominal pain, nausea or vomiting. He denies having a headache. Staff says he is having more aggressive behaviors and outbursts. He does not hit other residents but he will lay hands on them. He is in [facility] for dementia. (Bennett Frazier) - Related Data Allergies Allergy/AdvReac Type Severity Reaction Status Date / Time No Known Allergies Allergy Verified 12/29/20 02:09 Home Meds: Home Meds Acetaminophen 650 mg PO Q4H 07/27/19 [History] Carbamide Peroxide [Debrox 6.5% Otic Soln] 5 - 10 drop EARBOTH BID PRN 07/27/19 [History] Carboxymethylcellulose Sodium [Refresh Tears 0.5%] 1 drop EYEBOTH ASDIRECTED PRN 07/27/19 [History] Cyanocobalamin (Vitamin B-12) [B-12] 1,000 mcg PO DAILY 07/27/19 [History] Donepezil HCl 5 mg PO BEDTIME 07/27/19 [History] Ibuprofen 200 mg PO Q4H PRN 07/27/19 [History] Levothyroxine [Synthroid] 75 mcg PO DAILY 07/27/19 [History] Loperamide [Imodium AD] 2 mg PO ASDIRECTED PRN 07/27/19 [History] Sertraline [Zoloft] 100 mg PO DAILY 07/27/19 [History] Triamcinolone Acetonide 1 applic TOP BID PRN 07/27/19 [History] atorvaSTATin Calcium [Atorvastatin Calcium] 40 mg PO BEDTIME 07/27/19 [History] busPIRone [Buspar] 15 mg PO BID 07/27/19 [History] Psyllium Husk [Fiber] 1 dose PO DAILY 04/11/20 [History] Aspirin [Aspirin EC] 81 mg PO DAILY 12/29/20 [History] Cholecalciferol (Vitamin D3) [Vitamin D3] 2,000 unit PO DAILY 12/29/20 [History] Meloxicam 7.5 mg PO DAILY 12/29/20 [History] QUEtiapine Fumarate [Seroquel Xr] 50 mg PO BEDTIME 12/29/20 [History] QUEtiapine [SEROquel] 25 mg PO 1500 12/29/20 [History] QUEtiapine [SEROquel] 25 mg PO QID PRN 12/29/20 [History] Past Medical History HEENT History: Reports: Cataract, Impaired Vision Other HEENT History: wears reading eyeglasses. Cardiovascular History: Reports: CAD, High Cholesterol Other Cardiovascular History: atherosclerotic heart disease. Genitourinary History: Reports: Prostate Disorder Other Genitourinary History: Hx--prostate seed implantation. Musculoskeletal History: Reports: Osteoarthritis Neurological History: Reports: Other (See Below) Other Neuro History: dementia Psychiatric History: Reports: Anxiety, Dementia, PTSD Other Psychiatric History: major depressive disorder, single episode. Endocrine/Metabolic History: Reports: Hypothyroidism Immunologic History: Reports: Other (See Below) Other Immunologic History: prostate CA Oncologic (Cancer) History: Reports: Prostate - Infectious Disease History Infectious Disease History: Reports: None - Past Surgical History HEENT Surgical History: Reports: Cataract Surgery <Kuylen,Jhonny - Last Filed: 12/30/20 09:17> Social & Family History - Tobacco Use Tobacco Use Status *Q: Unknown Ever Used Tobacco Second Hand Smoke Exposure: No - Caffeine Use Caffeine Use: Reports: None - Recreational Drug Use Recreational Drug Use: No <Bennett Frazier A - Last Filed: 12/30/20 09:17> ED ROS GENERAL - Review of Systems Review Of Systems: See Below Constitutional: Reports: No Symptoms HEENT: Reports: No Symptoms Respiratory: Reports: No Symptoms Cardiovascular: Reports: No Symptoms Endocrine: Reports: No Symptoms GI/Abdominal: Reports: No Symptoms : Reports: No Symptoms Musculoskeletal: Reports: No Symptoms <Bennett Frazier A - Last Filed: 12/30/20 09:17> ED EXAM, HEAD INJURY - Physical Exam Exam: See Below Exam Limited By: No Limitations General Appearance: Alert, No Apparent Distress Head: Other (Abrasion to the back of his head) Ears: Normal External Exam Nose: Normal Inspection Neck: Non-Tender, Full Range of Motion, Normal Alignment, Normal Inspection Respiratory: No Respiratory Distress, Lungs Clear, Normal Breath Sounds Cardiovascular: Regular Rate, Rhythm, No Edema, No Murmur GI/Abdominal Exam: Soft, Non-Tender, No Organomegaly, No Mass Extremities: Other (Edema and ecchymosis to the right forearm. Skin tears to the left arm.) Neurologic: Alert, Other (orientated to person) <Bennett Frazier A - Last Filed: 12/30/20 09:17> Course <David Cornell L - Last Filed: 12/29/20 19:44> <Norbert Penn A - Last Filed: 12/30/20 00:27> <Bennett Frazier A - Last Filed: 12/30/20 09:17> - Vital Signs Last Recorded V/S: Last Vital Signs Temp 97.6 F 12/29/20 02:06 Pulse 72 12/29/20 04:18 Resp 18 12/29/20 04:18 BP 178/136 H 12/29/20 04:18 Pulse Ox 99 12/29/20 04:18 - Orders/Labs/Meds Labs: Laboratory Tests 12/29/20 12/29/20 12/29/20 Range/Units 02:25 02:51 02:51 WBC 5.63 (4.23-9.07) K/mm3 RBC 3.19 L (4.63-6.08) M/mm3 Hgb 9.7 L D (13.7-17.5) gm/dl Hct 29.5 L (40.1-51.0) % MCV 92.5 H (79.0-92.2) fl MCH 30.4 (25.7-32.2) pg MCHC 32.9 (32.2-35.5) g/dl RDW Std Deviation 42.8 (35.1-43.9) fL Plt Count 153 L (163-337) K/mm3 MPV 11.5 (9.4-12.3) fl Neut % (Auto) 66.4 (34.0-67.9) % Lymph % (Auto) 19.7 L (21.8-53.1) % Moore % (Auto) 9.6 (5.3-12.2) % Eos % (Auto) 3.6 (0.8-7.0) Baso % (Auto) 0.5 (0.1-1.2) % Neut # (Auto) 3.74 (1.78-5.38) K/mm3 Lymph # (Auto) 1.11 L (1.32-3.57) K/mm3 Moore # (Auto) 0.54 (0.30-0.82) K/mm3 Eos # (Auto) 0.20 (0.04-0.54) K/mm3 Baso # (Auto) 0.03 (0.01-0.08) K/mm3 Sodium 143 (136-145) mEq/L Potassium 3.8 (3.5-5.1) mEq/L Chloride 108 H (98-107) mEq/L Carbon Dioxide 29 (21-32) mEq/L Anion Gap 9.8 (5-15) BUN 19 H (7-18) mg/dL Creatinine 1.1 (0.7-1.3) mg/dL Est Cr Clr Drug Dosing 47.57 mL/min Estimated GFR (MDRD) > 60 (>60) mL/min BUN/Creatinine Ratio 17.3 (14-18) Glucose 91 (70-99) mg/dL Calcium 8.4 L (8.5-10.1) mg/dL Total Bilirubin 0.5 (0.2-1.0) mg/dL AST 28 (15-37) U/L ALT 20 (16-63) U/L Alkaline Phosphatase 80 (46-116) U/L Troponin I < 0.017 (0.00-0.056) ng/mL C-Reactive Protein 0.9 (<1.0) mg/dL Total Protein 6.4 (6.4-8.2) g/dl Albumin 3.1 L (3.4-5.0) g/dl Globulin 3.3 gm/dL Albumin/Globulin Ratio 0.9 L (1-2) Free T4 (0.76-1.46) ng/dL TSH 3rd Generation (0.358-3.74) uIU/mL Urine Color (Yellow) Urine Appearance (Clear) Urine pH (5.0-8.0) Ur Specific [place] (1.005-1.030) Urine Protein (Negative) Urine Glucose (UA) (Negative) Urine Ketones (Negative) Urine Occult Blood (Negative) Urine Nitrite (Negative) Urine Bilirubin (Negative) Urine Urobilinogen (0.2-1.0) Ur Leukocyte Esterase (Negative) Urine RBC (0-5) /hpf Urine WBC (0-5) /hpf Ur Epithelial Cells (0-5) /hpf Urine Bacteria (FEW) /hpf Urine Mucus (FEW) /hpf SARS-CoV-2 RNA (XIOMARA) Negative (NEGATIVE) 12/29/20 12/29/20 12/29/20 Range/Units 02:51 05:30 05:45 WBC (4.23-9.07) K/mm3 RBC (4.63-6.08) M/mm3 Hgb (13.7-17.5) gm/dl Hct (40.1-51.0) % MCV (79.0-92.2) fl MCH (25.7-32.2) pg MCHC (32.2-35.5) g/dl RDW Std Deviation (35.1-43.9) fL Plt Count (163-337) K/mm3 MPV (9.4-12.3) fl Neut % (Auto) (34.0-67.9) % Lymph % (Auto) (21.8-53.1) % Moore % (Auto) (5.3-12.2) % Eos % (Auto) (0.8-7.0) Baso % (Auto) (0.1-1.2) % Neut # (Auto) (1.78-5.38) K/mm3 Lymph # (Auto) (1.32-3.57) K/mm3 Moore # (Auto) (0.30-0.82) K/mm3 Eos # (Auto) (0.04-0.54) K/mm3 Baso # (Auto) (0.01-0.08) K/mm3 Sodium (136-145) mEq/L Potassium (3.5-5.1) mEq/L Chloride (98-107) mEq/L Carbon Dioxide (21-32) mEq/L Anion Gap (5-15) BUN (7-18) mg/dL Creatinine (0.7-1.3) mg/dL Est Cr Clr Drug Dosing mL/min Estimated GFR (MDRD) (>60) mL/min BUN/Creatinine Ratio (14-18) Glucose (70-99) mg/dL Calcium (8.5-10.1) mg/dL Total Bilirubin (0.2-1.0) mg/dL AST (15-37) U/L ALT (16-63) U/L Alkaline Phosphatase (46-116) U/L Troponin I (0.00-0.056) ng/mL C-Reactive Protein (<1.0) mg/dL Total Protein (6.4-8.2) g/dl Albumin (3.4-5.0) g/dl Globulin gm/dL Albumin/Globulin Ratio (1-2) Free T4 0.88 (0.76-1.46) ng/dL TSH 3rd Generation 7.127 H (0.358-3.74) uIU/mL Urine Color Yellow (Yellow) Urine Appearance Clear (Clear) Urine pH 7.0 (5.0-8.0) Ur Specific [place] 1.020 (1.005-1.030) Urine Protein Negative (Negative) Urine Glucose (UA) Negative (Negative) Urine Ketones Negative (Negative) Urine Occult Blood Trace-intact H (Negative) Urine Nitrite Negative (Negative) Urine Bilirubin Negative (Negative) Urine Urobilinogen 0.2 (0.2-1.0) Ur Leukocyte Esterase Negative (Negative) Urine RBC 0-5 (0-5) /hpf Urine WBC 0-5 (0-5) /hpf Ur Epithelial Cells Not seen (0-5) /hpf Urine Bacteria Rare (FEW) /hpf Urine Mucus Not seen (FEW) /hpf SARS-CoV-2 RNA (XIOMARA) (NEGATIVE) Meds: Medications Discontinued Medications Generic Name Dose Route Start Last Admin Trade Name Freq PRN Reason Stop Dose Admin Acetaminophen 975 mg 12/29/20 15:38 12/29/20 15:56 Acetaminophen 325 Mg Tab PO 12/29/20 15:39 975 mg NOW ONE Administration Lorazepam 1 mg 12/29/20 06:43 12/29/20 07:14 Lorazepam 1 Mg Tab PO 12/29/20 06:44 Not Given ONETIME ONE Lorazepam 2 mg 12/29/20 06:44 12/29/20 06:47 Lorazepam 2 Mg/Ml Sdv IM 12/29/20 06:45 2 mg ONETIME ONE Administration Lorazepam Confirm 12/29/20 06:46 12/29/20 06:54 Lorazepam 2 Mg/Ml Sdv Administered 12/29/20 06:47 Not Given Dose 2 mg .ROUTE .STK-MED ONE Lorazepam 0.5 mg 12/29/20 15:38 12/29/20 15:56 Lorazepam 0.5 Mg Tab PO 12/29/20 15:39 0.5 mg ONETIME ONE Administration Lorazepam 1 mg 12/29/20 19:51 12/29/20 20:05 Lorazepam 1 Mg Tab PO 12/29/20 19:52 1 mg ONETIME ONE Administration Lorazepam 1 mg 12/30/20 00:27 12/30/20 00:43 Lorazepam 1 Mg Tab PO 12/30/20 00:28 1 mg ONETIME ONE Administration Lorazepam 1 mg 12/30/20 04:30 12/30/20 04:36 Lorazepam 1 Mg Tab PO 12/30/20 04:31 1 mg ONETIME ONE Administration Olanzapine 5 mg 12/29/20 04:25 12/29/20 04:43 Olanzapine 5 Mg Tab PO 12/29/20 04:26 5 mg ONETIME ONE Administration Olanzapine 5 mg 12/29/20 05:32 12/29/20 06:50 Olanzapine 5 Mg Tab PO 12/29/20 05:33 5 mg ONETIME ONE Administration - Re-Assessments/Exams Free Text/Narrative Re-Assessment/Exam: 12/29/20 10:20. Have assumed care from Dr Frazier after change of shift. He has been more calm, resting more comfortably after ativan 2 mg IM at about 16:45 and 2 doses of zyprexa 5 mg PO before that. Elisabeth, from [facility] has been here, has done a screening for admission to [facility]. Unfortunately they are full, no beds available at this time. When I check on patient he seems to be hallucinating, is somewhat restless moving arms and legs on cot, eyes closed, not verbalizing. [facility] staff member continues to be with him in the room. 12/29/20 13:15. We have been waiting to hear from the [facility] associated with [facility]. They are relatively full but may be able to make arrangements for a bed for him. Pt is currently sleeping. 12/29/20 15:30. [facility] has advised us they will be unable to take him in transfer. Have recontacted Elisabeth with [facility] to see if [facility] might have an opening and be able to take him !6;00. Elisabeth apparently having difficulty getting hold of Provider contract administration coordinator for [facility]. 17:45 Dr Escalera from the [facility] has called. Have given her a full report of sx over the past 10 days, lab values checked this morning. CT results. She is requesting a T4 be checked. That order has been placed. (David Cornell) 12/29/20 22:[address] Cornell at 20:00, for change of shift. Notified by Alanna WALLACE that the oral lorazepam that the patient was given earlier did not do anything, that he was still agitated, however, I went and evaluated the patient, and he appears to be calm at this time, lightly sleeping. 12/29/20 23:00 Notified by Babs WALLACE that she was in contact with one of the caregivers at [facility], and was informed that the patient was started on Seroquel only a week ago, and that his current degree of agitation is normal for him, and unchanged since he was started on Seroquel. 12/30/20 00:27 Notified by Denia WALLACE that patient is agitated again. I have ordered lorazepam 1 mg p.o. (Norbert Penn) 12/29/20 02:55 I ordered an EKG, CT of his head, COVID 19, UA and labs. 12/29/20 07:[address] of his chest shows a 6mm nonobstructing right renal pelvis stone. Nondisplaced right 6th rib fracture. The CT of his head shows right parieto- occipital scalp soft tissue injury. Mild stable white matter disease of the brain which likely represents sequelae of chronic small vessel ischemic change. No acute intracranial findings. 12/29/20 07:12 His Hgb was low at 9.7. His CMP is negative. His TSH is elevated at 7.127. His UA shows no UTI. He is COVID negative. [facility] not take him back. The patient has been hallucinating through the night. He is talking to people who are not there. I gave him 2 doses of zyprexa and ativan 2mg IM. I have called [facility] and they will come assess him. Both [facility] are full. 12/30/20 09:15 The [facility] has accepted him and they have an opening. [facility] will be taking the patient. He has been given zyprexa and multiple doses of ativan to calm him. He cannot go by wheel chair or vehicle. (Bennett Frazier) Departure - Departure Condition: Serious <David Cornell - Last Filed: 12/29/20 19:44> <Norbert Penn - Last Filed: 12/30/20 00:27> - Departure Time of Disposition: 09:20 <Bennett Frazier - Last Filed: 12/30/20 09:17> - Departure Disposition: DC/Tfer to [facility] Clinical Impression: Agitation due to dementia, Physically aggressive behavior, Hallucinations Fall Qualifiers: Encounter type: initial encounter Qualified Code(s): W19.XXXA - Unspecified fall, initial encounter Dementia Qualifiers: Dementia type: Alzheimer's Alzheimer's disease onset: unspecified onset Dementia behavioral disturbance: with behavioral disturbance Qualified Code(s): G30.9 - Alzheimer's disease, unspecified - Discharge Information Referrals: John Zambrano MD [Primary Care Provider] - Forms: ED Department Discharge Sepsis Event Note (ED) - Evaluation Sepsis Screening Result: No Definite Risk <Bennett Frazier - Last Filed: 12/30/20 09:17>
[2020-12-29] MEDS ORDERED: OLANZapine 5 MG Tab PO ONE ×2 (04:25→05:32)
[2020-12-29] MEDS ORDERED: LORazepam 1 MG Tab PO ONE ×2 (06:43→19:51)
[2020-12-29] MEDS ORDERED: LORazepam 2 MG/ML SDV IM ONE (06:44)
[2020-12-29] MEDS ORDERED: LORazepam 2 MG/ML SDV ONE (06:46)
--- NOTE | 2020-12-29 07:04 | CT ---
Head CT Technique: Multiple axial sections through the brain were obtained. Intravenous contrast was not utilized. Reconstructed coronal and sagittal images were obtained. Comparison: Prior head CT study of 12/24/20. Findings: Ventricles along with basal cisterns and sulci over the convexities are moderately prominent. Mild diminished density is noted within the periventricular and subcortical white matter which is most likely due to small vessel ischemic demyelination change. Slight soft tissue density is seen within the posterior right parietal scalp most likely representing mild soft tissue swelling. No evidence of intracranial hemorrhage is seen. No midline shift or mass-effect is seen. Bone window settings were reviewed. Visualized paranasal sinuses and mastoid sinuses show nothing acute. No acute calvarial abnormality is appreciated. Impression: 1. Slight soft tissue swelling within the posterior scalp. 2. Senescent change as noted above. 3. No acute intracranial abnormality is identified. Diagnostic code #2 I agree with preliminary report from [facility], finalized on 12/29/20, 4:47 AM CDT, code 1
--- NOTE | 2020-12-29 07:13 | CT ---
CT chest Technique: Multiple axial sections were obtained from above the lung apices inferiorly through the lung bases. Intravenous contrast was not utilized. Reconstructed coronal and sagittal images were obtained. Comparison: No prior chest CT study is available, prior chest x-ray of 04/11/20. Findings: Thoracic aorta shows atherosclerotic calcification. Mediastinum shows no adenopathy. There is coronary artery calcification is noted. No pericardial thickening is seen. Small cyst is noted within the left lobe of the liver measuring 9 mm. Second low density finding is noted within the right lobe of the liver measuring 8 mm most likely representing a cyst. Larger cyst is noted within the right lobe of the liver next to the gallbladder measuring 2.2 cm. Nonobstructing calculus is noted within the right kidney measuring around 6 mm. Lung window settings were reviewed which show no acute parenchymal abnormality. Incidental dependent atelectasis is noted within both lung bases. Bone window settings were reviewed. Mild degenerative change is seen within the spine. Very minimal lucent line is noted within the anterolateral right sixth rib which could represent a minimal nondisplaced fracture. Impression: 1. Possible nondisplaced fracture within the anterolateral right sixth rib. 2. Other chronic findings as noted above. Diagnostic code #3 I agree with preliminary report from [facility], finalized on 12/29/20, 5:13 AM CDT, code 1
[2020-12-29] MEDS ORDERED: LORazepam 0.5 MG Tab PO ONE (15:38)
[2020-12-29] MEDS ORDERED: Acetaminophen 325 MG Tab PO ONE (15:38)
[2020-12-30] MEDS ORDERED: LORazepam 1 MG Tab PO ONE ×2 (00:27→04:30)
== END 2020-12-30 09:35 ==
LOC: JD.ED 01:52
DX: S00.81XA Abrasion of other part of head, initial encounter (principal); S50.812A Abrasion of left forearm, initial encounter; G30.9 Alzheimer's disease, unspecified; R44.3 Hallucinations, unspecified; I25.10 Atherosclerotic heart disease of native coronary artery without angina pectoris; E78.00 Pure hypercholesterolemia, unspecified; E03.9 Hypothyroidism, unspecified; Z79.82 Long term (current) use of aspirin; Z79.899 Other long term (current) drug therapy; Z20.822 Contact with and (suspected) exposure to COVID-19; W19.XXXA Unspecified fall, initial encounter
CPT/HCPCS: 36415; 70450; 71250; 80053; 81001; 84439; 84443; 84484; 85025; 86140; 87635; 93005; 96372; 99285; A9270; J2060; U0002